=== PATIENT | male | born 2000 | race Caucasian/White ===

== ENCOUNTER 2020-08-11 18:44 | Emergency (ER) | payer OTHER, SELFPAY ==
--- OUTSIDE RECORDS SUMMARY | 2020-08-11 18:49 | XMS REPORT | Continuity of Care Document ---
:2000 Author Organization [facility] t Address [address] [place] [address] Care Team Providers Name Role Phone Singer CORBIN Attending Clinician Problems This patient has no known problems. Allergies, Adverse Reactions, Alerts This patient has no known allergies or adverse reactions. Medications This patient has no known medications. Procedures This patient has no known procedures. Encounters Start End Encounter Admission Attending Care Care Encounter Source Date/Time Date/Time Type Type Clinicians Facility Department ID 2020-05-24 2020-05-[address] [facility] [id number] 09:19:00 09:56:00 Kenrick Pigeon [id number] [place] [id number] [place] [id number] Results This patient has no known results.
[2020-08-11 19:50] LABS: Absolute Lymphocytes (CBC) 1.9 K/uL (0.7-4.9); Basophils % 0.6 % (0-1.3); Hematocrit 42.8 % (39.6-49.0); Lymphocytes % 24.5 % (15.3-44.8); MPV 7.8 fL (7.6-11.3); RBC Red Blood Cell Count 5.19 M/uL (4.33-5.43)
[2020-08-11 19:56] LABS: Protime INR 1.13
[2020-08-11 20:12] LABS: ALT/SGPT 255 U/L (12-78); AST/SGOT 143 U/L (15-37); Albumin 4.3 g/dL (3.4-5.0); Alkaline Phosphatase 132 U/L (45-117); BUN Blood Urea Nitrogen 12 mg/dL (7-18); Bicarbonate 25 mmol/L (21-32); Bilirubin Direct 0.1 mg/dL (0-0.2); Bilirubin Total 0.4 mg/dL (0.2-1.0); Glucose Level 97 mg/dL (74-106); Potassium 3.9 mmol/L (3.5-5.1); Protein, Total 8.6 g/dL (6.4-8.2); Sodium Level 143 mmol/L (136-145)
[2020-08-11 20:57] LABS: Barbiturates NEGATIVE (NEGATIVE); Benzodiazepines NEGATIVE (NEGATIVE); Cocaine NEGATIVE (NEGATIVE); METHAMPHETAM NEGATIVE (NEGATIVE); Methadone NEGATIVE (NEGATIVE); Opiates NEGATIVE (NEGATIVE); Phencyclidine NEGATIVE (NEGATIVE); THC Cannibis NEGATIVE (NEGATIVE)
[2020-08-11] MEDS ORDERED: Acetylcysteine 6000mg/30mL IV ONE (21:08)
[2020-08-11] MEDS ORDERED: NA CHLORIDE 0.9% 500 ML ONE (21:09)
[2020-08-11 23:35] LABS: ALT/SGPT 250 U/L (12-78); AST/SGOT 141 U/L (15-37); Albumin 4.3 g/dL (3.4-5.0); Alkaline Phosphatase 126 U/L (45-117); Bilirubin Direct < 0.1 mg/dL (0-0.2); Bilirubin Total 0.4 mg/dL (0.2-1.0); Protein, Total 8.6 g/dL (6.4-8.2)
[2020-08-11] MEDS ORDERED: MAGNESIUM SULFATE 1 gm IVPB 1 GM/100 ML BAG IV ONE (23:42)
--- NOTE | 2020-08-12 03:46 | ER ---
Nurse's Notes [facility] Name: Terrence Minor Age: 20 yrs Sex: Male : 2000 Arrival Date: 08/11/2020 Time: 18:53 Bed 19 Private MD: Diagnosis: Bipolar disorder, unspecified;Suicidal ideations Presentation: 08/11 18:45 Chief complaint: EMS states: 20 yr old, A \\T\\ O x 4, took unknown amount of Trazodone 50 rb3 mg pills. EMS picked the pt up at the [facility]. Pt had a knife on his person when someone approached him the the bathroom at [facility] and he showed the knife and told them not to come any closer. [place] [employer] has the knife in possession. BP 124/78, P 130's, 98% RA. NKA. History of Bipolar. Coronavirus screen: At this time, the client does not indicate any symptoms associated with coronavirus-19. Ebola Screen: Patient denies travel to an Ebola-affected area in the 21 days before illness onset. Risk Assessment: Do you want to hurt yourself or someone else? Patient reports desire/thoughts of hurting themselves or someone else. Provider notified. Onset of symptoms was August 11, 2020. 18:45 Method Of Arrival: EMS: [facility] rb3 18:45 Acuity: FREDIS 3 rb3 21:36 Initial Sepsis Screen: Does the patient meet any 2 criteria? No. Patient's initial ak2 sepsis screen is negative. Does the patient have a suspected source of infection? No. Patient's initial sepsis screen is negative. Triage Assessment: 18:45 General: Appears in no apparent distress. Behavior is calm, cooperative. Pain: Denies rb3 pain. Neuro: Level of Consciousness is awake, alert, obeys commands, Oriented to person, place, time, situation. Cardiovascular: Patient's skin is warm and dry. Cardiovascular: Rhythm is sinus tachycardia. Respiratory: Airway is patent Respiratory effort is even, unlabored, Respiratory pattern is regular, symmetrical. GI: No signs and/or symptoms were reported involving the gastrointestinal system. : No signs and/or symptoms were reported regarding the genitourinary system. Musculoskeletal: Range of motion: intact in all extremities. Historical: - Allergies: 18:45 No Known Allergies; rb3 - PMHx: 18:45 Bipolar disorder; Anxiety; Depression; ADHD; OCD; rb3 - Immunization history:: Adult Immunizations up to date. - Social history:: Smoking status: Patient/guardian denies using. Screenin:45 Abuse screen: Pt took unknown amount of Trazodone. Nutritional screening: No deficits rb3 noted. Tuberculosis screening: No symptoms or risk factors identified. Fall Risk None identified. Assessment: 20:37 General: poison control contacted and physician aware of recommendations. . ak2 21:36 Reassessment: Patient and/or family updated on plan of care and expected duration. Pain ak2 level reassessed. no sitter at this time. charge aware.. 08/12 00:49 Reassessment: Patient and/or family updated on plan of care and expected duration. Pain ak2 level reassessed. 01:26 Reassessment: Patient and/or family updated on plan of care and expected duration. Pain ak2 level reassessed. 03:05 Reassessment: Patient and/or family updated on plan of care and expected duration. Pain ak2 level reassessed. 03:33 General: [place] at bedside.. ak2 Psych: 08/11 18:45 [place] Suicide Severity Screening: In the past month, have you wished you were rb3 or wished you could go to sleep and not wake up? Patient responds "yes." Based off the client's responses additional C-SSRS screening is required. "In the past month, have you actually had any thoughts of killing yourself?" Patient responds "yes." Based off the client's response additional [place] suicide severity screening questions to be further documented on paper forms. 21:34 [place] Suicide Severity Screening: "In your lifetime, have you ever done anything, ak2 started to do anything, or prepared to do anything to end your life?" Patient responds "no.". Subjective: Patient's mood is appropriate. Objective: Patient is cooperative. Interventions: Removed personal items and placed in bag. Patient placed in hospital gown. Searched person for dangerous items. Urine collected and sent for urine drug test. Belonging list filled out. Patient reassessed during use of restraints. Patient is physically safe. Patient's cardiac status is stable. Patient's respirations are even and unlabored. Patient has good circulation in all extremities as indicated by capillary refill < 3 seconds. Patient's ROM assessed and is intact. Patient nutrition and hydration needs will continue to be monitored and addressed. Patient hygiene and elimination needs met. Patient assessed for signs of distress. Patient remains reasonably comfortable at this time. Assisted patient in de-escalation of behavior by removing stimuli causing behavior where possible. Safety Checks: Personal items have been removed. Door is open. Visitors are present. Pt denies substance abuse. Commitment: Patient will be a voluntary commitment. Vital Signs: 18:45 BP 131 / 109; Pulse 131; Resp 19; Pulse Ox 99% ; Weight 122.47 kg; Height 6 ft. 0 in. rb3 (182.88 cm); Pain 0/10; 21:32 BP 105 / 63; Pulse 90; Resp 20; Pulse Ox 96% on R/A; ak2 22:46 BP 106 / 60; Pulse 83; Resp 18; Pulse Ox 98% on R/A; ak2 08/12 00:48 BP 115 / 54; Pulse 82; Resp 16; Pulse Ox 97% on R/A; ak2 03:05 BP 105 / 58; Pulse 87; Resp 20; Pulse Ox 100% on R/A; ak2 08/11 18:45 Body Mass Index 36.62 (122.47 kg, 182.88 cm) rb3 ED Course: 08/11 18:45 Arm band placed on right wrist. rb3 18:45 Patient has correct armband on for positive identification. Bed in low position. Call rb3 light in reach. Side rails up X 1. monitor worker on. Pulse ox on. NIBP on. 18:53 Patient arrived in ED. rb3 18:57 Triage completed. rb3 19:00 Aurelio Greene PA is PHCP. jm 19:00 Raghav Genao MD is Attending Physician. [facility] 19:11 Bruce Samaniego is Primary Nurse. ak2 20:20 No provider procedures requiring assistance completed. Inserted saline lock: 20 gauge ak2 in right antecubital area, using aseptic technique. 23:23 PHCP role handed off by Aurelio Greene PA jr8 23:23 Torey Griffin PA is PHCP. jr8 08/12 01:20 called [facility] to have a screener evaluate the patient. mw2 Administered Medications: 08/11 19:36 Drug: NS 0.9% 1000 ml Route: IV; Rate: 1 bolus; Site: right antecubital; jm8 20:49 Drug: MucoMYST - Acetylcysteine 50 mg/kg Route: IV; Rate: calculated rate; Site: right ak2 antecubital; 23:21 Drug: Magnesium Sulfate 1 grams Route: IVPB; Infused Over: 1 hrs; Site: right ak2 antecubital; Outcome: 08/12 03:45 Discharge ordered by . rn 03:58 Discharged to home ambulatory. ak2 03:58 Condition: good 03:58 Discharge instructions given to patient, family. 04:10 Patient left the ED. ak2 Signatures: Aurelio Greene PA PA jmm Nieto, Roman, MD MD rn Roszak, Josh, PA PA Jose Washburn 2 Jacy Cherry RN RN rb3 Jed Gambino RN RN jm8 Bruce Samaniego ak2 Corrections: (The following items were deleted from the chart) 08/11 18:58 18:45 PMHx: depression; rb3 rb3
--- NOTE | 2020-08-12 03:46 | EDPHYS ---
Physician Documentation [facility] Name: Terrence Minor Age: 20 yrs Sex: Male : 2000 Arrival Date: 08/11/2020 Time: 18:53 Bed 19 Private MD: ED Physician Raghav Genao HPI: 08/11 19:01 This 20 yrs old Male presents to ER via EMS with complaints of Suicidal jmm Ideation. 19:01 The patient presents to the emergency department with suicide ideation, and the patient jmm has a plan, to overdose with medications. Onset: The symptoms/episode began/occurred acutely, just prior to arrival. Past psychiatric history: Prior diagnosis: bipolar disorder. Associated signs and symptoms:. This is a 20 year old male with a history of bipolar, depression anxiety, that presents to the ED with complaints of increased stress at work which led him to taking over 12 trazodones in an attempt to harm himself. Patient states that his bipolar makes him impulsive. According to EMS patient confronted police with a knife as well. . Historical: - Allergies: 18:45 No Known Allergies; rb3 - PMHx: 18:45 Bipolar disorder; Anxiety; Depression; ADHD; OCD; rb3 - Immunization history:: Adult Immunizations up to date. - Social history:: Smoking status: Patient/guardian denies using. ROS: 19:01 Constitutional: Negative for fever, chills, and weight loss, Cardiovascular: Negative jmm for chest pain, palpitations, and edema, Respiratory: Negative for shortness of breath, cough, wheezing, and pleuritic chest pain. 19:01 Psych: Positive for suicide gesture. 19:01 All other systems are negative. Exam: 19:01 Constitutional: This is a well developed, well nourished patient who is awake, alert, jmm and in no acute distress. Head/Face: atraumatic. Eyes: EOMI, no conjunctival erythema appreciated ENT: Moist Mucus Membranes Neck: Trachea midline, Supple Chest/axilla: Normal chest wall appearance and motion. Cardiovascular: Regular rate and rhythm. No edema appreciated Respiratory: Normal respirations, no respiratory distress appreciated Abdomen/GI: Non distended, soft Back: Normal ROM Skin: General appearance color normal MS/ Extremity: Moves all extremities, no obvious deformities appreciated, no edema noted to the lower extremities Neuro: Awake and alert, normal gait Psych: Behavior is normal, Mood is normal, Patient is cooperative and pleasant Vital Signs: 18:45 BP 131 / 109; Pulse 131; Resp 19; Pulse Ox 99% ; Weight 122.47 kg; Height 6 ft. 0 in. rb3 (182.88 cm); Pain 0/10; 21:32 BP 105 / 63; Pulse 90; Resp 20; Pulse Ox 96% on R/A; ak2 22:46 BP 106 / 60; Pulse 83; Resp 18; Pulse Ox 98% on R/A; ak2 08/12 00:48 BP 115 / 54; Pulse 82; Resp 16; Pulse Ox 97% on R/A; ak2 03:05 BP 105 / 58; Pulse 87; Resp 20; Pulse Ox 100% on R/A; ak2 08/11 18:45 Body Mass Index 36.62 (122.47 kg, 182.88 cm) rb3 MDM: 08/11 19:01 Patient medically screened. [facility] 20:52 Data reviewed:. fabrice 20:53 Transition of care: After a detail discussion of the patient's case, care is fabrice transferred to Torey GARCIA. 08/12 03:43 Differential diagnosis: depression, psychosis secondary to non-compliance, medication rn non-compliance. Counseling: I had a detailed discussion with the patient and/or guardian regarding: the historical points, exam findings, and any diagnostic results supporting the discharge/admit diagnosis, lab results, the need for outpatient follow up, to return to the emergency department if symptoms worsen or persist or if there are any questions or concerns that arise at home. Response to treatment: the patient's symptoms have markedly improved after treatment, and as a result, I will discharge patient. Special discussion: I discussed with the patient/guardian in detail that at this point there is no indication for admission to the hospital. It is understood, however, that if the symptoms persist or worsen the patient needs to return immediately for re-evaluation. Based on the history and exam findings, there is no indication for further emergent testing or inpatient evaluation. I discussed with the patient/guardian the need to see the psychiatrist for further evaluation of the symptoms. ED course: Pt evaluated by [facility], they recommend outpt treatment, is already in system, is on medication, they plan emergent f/u within 24 hours per screener, patient denying suicidal ideations currently, states has good support system, and family plans on keeping an eye on him. Return precautions given and understood.. 08/11 19:02 Order name: Acetaminophen [facility] 08/11 19:02 Order name: Basic Metabolic Panel; Complete Time: 20:14 [facility] 08/11 19:02 Order name: CBC with Diff; Complete Time: 19:52 [facility] 08/11 19:02 Order name: ETOH Level; Complete Time: 20:14 [facility] 08/11 19:02 Order name: Hepatic Function; Complete Time: 20:14 [facility] 08/11 19:02 Order name: PT-INR [facility] 08/11 19:02 Order name: Ptt, Activated [facility] 08/11 19:02 Order name: Salicylate; Complete Time: 20:14 [facility] 08/11 19:02 Order name: Urine Drug Screen; Complete Time: 22:05 [facility] 08/11 19:02 Order name: Acetaminophen Level; Complete Time: 20:14 [facility] 08/11 22:49 Order name: SARS-COV-2 RT PCR; Complete Time: 23:15 [facility] 08/11 23:04 Order name: LFT's; Complete Time: 23:36 [facility] 08/11 19:02 Order name: EKG; Complete Time: 19:02 [facility] 08/11 19:02 Order name: EKG - Nurse/Tech; Complete Time: 21:36 [facility] 08/11 19:02 Order name: IV Saline Lock; Complete Time: 21:36 [facility] 08/11 19:02 Order name: Labs collected and sent; Complete Time: 21:36 [facility] 08/11 19:02 Order name: Suicide Screening ([place]) [facility] 08/11 19:02 Order name: Urine Dipstick-Ancillary (obtain specimen) [facility] Administered Medications: 08/11 19:36 Drug: NS 0.9% 1000 ml Route: IV; Rate: 1 bolus; Site: right antecubital; jm8 20:49 Drug: MucoMYST - Acetylcysteine 50 mg/kg Route: IV; Rate: calculated rate; Site: right ak2 antecubital; 23:21 Drug: Magnesium Sulfate 1 grams Route: IVPB; Infused Over: 1 hrs; Site: right ak2 antecubital; Disposition: 08/12 07:34 Co-signature as Attending Physician, Raghav Genao MD I agree with the assessment and christo plan of care. Disposition Summary: 08/12/20 03:45 Discharge Ordered Location: Home rn Problem: new rn Symptoms: have improved rn Condition: Stable rn Diagnosis - Bipolar disorder, unspecified rn - Suicidal ideations rn Followup: rn - With: Private Physician - When: 1 - 2 days - Reason: Recheck today's complaints, Re-evaluation by your physician Discharge Instructions: - Discharge Summary Sheet rn - Suicidal Feelings: How to Help Yourself rn - Stress, Adult rn Forms: - Medication Reconciliation Form rn - Thank You Letter rn - Antibiotic furniture builder - Prescription Opioid Use rn Signatures: Dispatcher [employer] EDMS Raghav Genao MD MD cha Mickail, Joel, PA PA jmm Nieto, Roman, MD MD rn Roszak, Josh, PA PA 8 Jacy Cherry, RN RN rb3 Jed Gambino, RN RN jm8 Bruce Samaniego2 Corrections: (The following items were deleted from the chart) 08/11 18:58 18:45 PMHx: depression; rb3 rb3 21:41 21:30 CORONAVIRUS+MR.LAB.BRZ ordered. EDMS EDMS
[2020-08-12 04:31] VITALS: BP 105/58; O2SAT 100
--- NOTE | 2020-08-12 06:19 | EKG ---
Test Date: 2020-08-11 Test Time: 19:35:30 [employer] Cashier: EULALIA MEASUREMENT RESULTS: Intervals: Rate: 122 MT: 162 QRSD: 80 QT: 300 QTc: 427 [place]: P: 25 MT: 162 QRS: 52 T: 10 INTERPRETIVE STATEMENTS: Sinus tachycardia Cannot rule out Anterior infarct, age undetermined Abnormal ECG No previous ECG available for comparison Electronically Signed On 08-12-20 06:17:42 CDT by Gabriel Bennett
--- NOTE | 2020-08-13 10:29 | EKG ---
Test Date: 2020-08-11 Test Time: 23:12:[address]: MEASUREMENT RESULTS: Intervals: Rate: 80 SD: 182 QRSD: 84 QT: 396 QTc: 456 [place]: P: 60 SD: 182 QRS: 89 T: 64 INTERPRETIVE STATEMENTS: Normal sinus rhythm Early repolarization Normal ECG Compared to ECG 08/11/2020 19:35:30 Early repolarization now present Sinus tachycardia no longer present Myocardial infarct finding no longer present Electronically Signed On 08-13-20 10:25:51 CDT by Gabriel Bennett
== END 2020-08-12 04:10 | disposition home or self-care (01) ==
LOC: ER 18:44
DX: T43.212A Poisoning by selective serotonin and norepinephrine reuptake inhibitors, intentional self-harm, initial encounter (principal); F31.9 Bipolar disorder, unspecified; Z20.822 Contact with and (suspected) exposure to COVID-19
CPT/HCPCS: 36415; 80048; 80076; 80307; 80320; 80329; 85025; 85610; 85730; 93005; 96374; 96375; 99285; J0132; J3475; J7040; U0003